=== PATIENT | female | born 2000 | race Two or more races ===

== ENCOUNTER 2021-01-28 14:41 | Emergency (ER) | payer MEDICAID ==
[~2021-01-28] VITALS: Ht 154.9 cm; Wt 67.6 kg
[2021-01-28 17:08] VITALS: BP 136/72
== END 2021-01-28 18:08 | disposition home or self-care (01) ==
LOC: ER 14:41
DX: S93.402A Sprain of unspecified ligament of left ankle, initial encounter (principal); W17.2XXA Fall into hole, initial encounter; Y93.89 Activity, other specified; Y92.89 Other specified places as the place of occurrence of the external cause; Y99.8 Other external cause status
CPT/HCPCS: 73610; 73700